=== PATIENT | female | born 1965 | race African-American/Black ===

== ENCOUNTER 2016-11-13 13:49 | Emergency (ER) | payer MEDICARE, MEDICAID ==
[2016-11-13] MEDS ORDERED: ASPIRIN 325 MG TABLET PO ONE (14:13)
--- NOTE | 2016-11-13 14:14 | ER Document Report ---
ED Medical Screen (RME) - General Chief Complaint: Chest Pain Stated Complaint: CHEST PAIN Time Seen by Provider: 11/13/16 14:09 Information source: Patient Notes: 50-year-old female with past medical history of HIV and high blood pressure who presents with 3 days of some intermittent substernal nonradiating chest "pressure". She denies any nausea, vomiting, fevers, coughing, shortness of breath, calf pain, leg swelling. TRAVEL OUTSIDE OF THE [place] IN LAST 30 DAYS: No - Related Data Allergies/Adverse Reactions: acetaminophen [From Percocet] Allergy (Verified 11/13/16 13:58) oxycodone [From Percocet] Allergy (Verified 11/13/16 13:58) Penicillins Allergy (Verified 11/13/16 13:58) sharma Allergy (Uncoded 11/13/16 13:58) Past Medical History Renal/ Medical History: Denies: Hx Peritoneal Dialysis Physical Exam - Vital signs Vitals: Temp Pulse Resp BP Pulse Ox 97.6 F 99 18 118/83 96 11/13/16 13:59 11/13/16 13:59 11/13/16 13:59 11/13/16 13:59 11/13/16 13:59 Course - Vital Signs Vital signs: Temp Pulse Resp BP Pulse Ox 97.6 F 99 18 118/83 96 11/13/16 13:59 11/13/16 13:59 11/13/16 13:59 11/13/16 13:59 11/13/16 13:59
[2016-11-13 15:44] LABS: ABSOLUTE MONOCYTES (AUTO) 0.2 10^3/uL (0.1-1.4); ABSOLUTE NEUT (AUTO) 1.1 10^3/uL (1.7-8.2); BASOPHILS % (AUTO) 1.1 % (0-2); EOSINOPHILS % (AUTO) 1.5 % (0-6); HEMATOCRIT 33.1 % (36.0-47.0); HEMOGLOBIN 10.9 g/dL (12.0-15.5); HGB HCT DIFFERENCE -0.4; LYMPHOCYTES % (AUTO) 41.2 % (13-45); MEAN CORPUSCULAR HEMOGLOBIN 29.5 pg (27.0-33.4); MEAN CORPUSCULAR HGB CONC 32.9 g/dL (32.0-36.0); MEAN CORPUSCULAR VOLUME 90 fl (80-97); MONOCYTES % (AUTO) 8.7 % (3-13); RED CELL DISTRIBUTION WIDTH 14.6 % (11.5-14.0); SEGMENTED NEUTROPHILS % (AUTO) 47.5 % (42-78); WHITE BLOOD COUNT 2.4 10^3/uL (4.0-10.5)
[2016-11-13 15:59] LABS: ALANINE AMINOTRANSFERASE 33 U/L (9-52); ALBUMIN 4.7 g/dL (3.5-5.0); ALKALINE PHOSPHATASE 88 U/L (38-126); ANION GAP 12 (5-19); ASPARTATE AMINO TRANSFERASE 25 U/L (14-36); BILIRUBIN,DIRECT 0.2 mg/dL (0.0-0.4); BILIRUBIN,TOTAL 0.5 mg/dL (0.2-1.3); BLOOD UREA NITROGEN 12 mg/dL (7-20); CALCIUM 9.8 mg/dL (8.4-10.2); CARBON DIOXIDE 24 mmol/L (22-30); CHLORIDE 107 mmol/L (98-107); CREATINE KINASE 217 U/L (30-135); CREATININE RESULT 0.72 mg/dL (0.52-1.25); GLUCOSE 89 mg/dL (75-110); POTASSIUM 4.5 mmol/L (3.6-5.0); SODIUM 143.3 mmol/L (137-145); TOTAL PROTEIN 9.6 g/dL (6.3-8.2)
--- NOTE | 2016-11-13 16:06 | ER Document Report ---
ED Cardiac - General Mode of Arrival: Ambulatory Information source: Patient TRAVEL OUTSIDE OF THE [place] IN LAST 30 DAYS: No <MORELIA CUNNINGHAM - Last Filed: 11/13/16 17:37> <ERNESTO JOY - Last Filed: 11/13/16 23:20> - General Chief Complaint: Chest Pain Stated Complaint: CHEST PAIN Time Seen by Provider: 11/13/16 14:09 Notes: Patient is a 50-year-old female with past medical history significant for HIV that presents to the emergency department today with complaints of chest pain for 3 days. Patient states her pain happens at various times throughout the day and the longest it has lasted was 30 minutes. Patient describes the pain as being in the middle of her chest and as a "tight" feeling. Patient states her HIV medications were recently changed and she has noticed that since the change she has had this pain. Patient denies any nausea, shortness of breath, fevers, cough, or change with food. (MORELIA CUNNINGHAM) - Related Data Allergies/Adverse Reactions: acetaminophen [From Percocet] Allergy (Verified 11/13/16 13:58) oxycodone [From Percocet] Allergy (Verified 11/13/16 13:58) Penicillins Allergy (Verified 11/13/16 13:58) sharma Allergy (Uncoded 11/13/16 13:58) Past Medical History - General Information source: Patient - Social History Smoking Status: Never Smoker Cigarette use (# per day): No Frequency of alcohol use: None Drug Abuse: None Lives with: Family Family History: Reviewed & Not Pertinent Patient has suicidal ideation: No Patient has homicidal ideation: No - Past Medical History Cardiac Medical History: Reports: Hx Hypertension Infectious Medical History: Reports: Hx HIV Surgical Hx: Negative <MORELIA CUNNINGHAM - Last Filed: 11/13/16 17:37> Review of Systems - Review of Systems Constitutional: denies: Fever EENT: No symptoms reported Cardiovascular: See HPI, Chest pain Respiratory: denies: Cough, Short of breath Gastrointestinal: denies: Nausea Genitourinary: No symptoms reported Female Genitourinary: No symptoms reported Musculoskeletal: No symptoms reported Skin: No symptoms reported Hematologic/Lymphatic: No symptoms reported Neurological/Psychological: No symptoms reported -: Yes All other systems reviewed and negative <MORELIA CUNNINGHAM - Last Filed: 11/13/16 17:37> Physical Exam <MORELIA CUNNINGHAM - Last Filed: 11/13/16 17:37> <ERNESTO JOY - Last Filed: 11/13/16 23:20> - Vital signs Vitals: Temp Pulse Resp BP Pulse Ox 97.6 F 99 18 118/83 96 11/13/16 13:59 11/13/16 13:59 11/13/16 13:59 11/13/16 13:59 11/13/16 13:59 - Notes Notes: Physical Exam: General: Alert, appears well. HEENT: Normocephalic. Atraumatic. PERRL. Extraocular movements intact. Oropharynx clear. Neck: Supple. Non-tender. Respiratory: No respiratory distress. Clear and equal breath sounds bilaterally. Cardiovascular: Regular rate and rhythm. Abdominal: Normal Inspection. Non-tender. No distension. Normal Bowel Sounds. Back: Non-tender. No deformity or step off. Extremities: Moves all four extremities. Upper extremities: Normal inspection. Normal ROM. Lower extremities: Normal inspection. No edema. Normal ROM. Neurological: Normal cognition. AAOx4. Normal speech. Psychological: Normal affect. Normal Mood. Skin: Warm. Dry. Normal color. (MORELIA CUNNINGHAM) Course - Laboratory Result Diagrams: 11/13/16 15:25 11/13/16 15:25 <MORELIA CUNNINGHAM - Last Filed: 11/13/16 17:37> - Laboratory Result Diagrams: 11/13/16 15:25 11/13/16 15:25 <ERNESTO JOY - Last Filed: 11/13/16 23:20> - Re-evaluation Re-evalutation: 11/13/16 18:16 Patient is a 50-year-old female who comes in for chest pain. Patient started complaining of chest pain again after eating a double cheeseburger here in the emergency department. Patient was given a GI cocktail and symptoms resolved. No acute changes on EKG. Troponin negative 2. Patient will be discharged home with medication for reflux and is to follow-up with her doctor. (ERNESTO JOY) - Vital Signs Vital signs: Temp Pulse Resp BP Pulse Ox 97.5 F 89 17 122/97 H 96 11/13/16 20:18 11/13/16 20:18 11/13/16 20:18 11/13/16 20:18 11/13/16 20:18 - Laboratory Laboratory results interpreted by me: 11/13/16 11/13/16 15:25 15:25 WBC 2.4 L RBC 3.70 L Hgb 10.9 L Hct 33.1 L RDW 14.6 H Absolute Neutrophils 1.1 L Creatine Kinase 217 H Total Protein 9.6 H Discharge <MORELIA CUNNINGHAM - Last Filed: 11/13/16 17:37> <ERNESTO JOY - Last Filed: 11/13/16 23:20> - Discharge Clinical Impression: GERD (gastroesophageal reflux disease) Qualifiers: Esophagitis presence: with esophagitis Qualified Code(s): K21.0 - Gastro- esophageal reflux disease with esophagitis Condition: Stable Disposition: HOME, SELF-CARE Instructions: Reflux Disease (GERD) ([facility]) Prescriptions: Ondansetron [Zofran Odt 4 mg Tablet] 1 tab PO Q6HP PRN #15 tab.rapdis PRN Reason: For Nausea/Vomiting Famotidine [Pepcid 20 mg Tablet] 20 mg PO DAILY #30 tablet Sucralfate [Carafate 1 gm Tablet] 1 gm PO ACHS #60 tablet Referrals: TALON REEDER FNP [Primary Care Provider] - Follow up as needed Scribe Attestation: 11/13/16 23:20 I personally performed the services described in the documentation, reviewed and edited the documentation which was dictated to the scribe in my presence, and it accurately records my words and actions. (ERNESTO JOY) Scribe Documentation - Scribe Written by Scribe:: Sunshine Du, 11/13/2016 1742 acting as scribe for :: Ela <MORELIA CUNNINGHAM - Last Filed: 11/13/16 17:37>
[2016-11-13 16:11] LABS: CREATINE KINASE MB 1.19 ng/mL (<4.55)
[2016-11-13 16:17] LABS: TROPONIN I < 0.012 ng/mL
[2016-11-13] MEDS ORDERED: SUCRALFATE 1 GM TABLET PO ONE (17:49)
[2016-11-13] MEDS ORDERED: ONDANSETRON 4 MG TAB.RAPDIS PO ONE (17:53)
[2016-11-13] MEDS ORDERED: MAG HYDROX/AL HYDROX/SIMETH SUSP 30 ML UDCUP PO ONE (17:53)
--- NOTE | 2016-11-13 18:10 | RADIOLOGY REPORT (SQ) ---
EXAM DESCRIPTION: CHEST PA/LAT COMPLETED DATE/TIME: 11/13/2016 5:23 pm REASON FOR STUDY: CP COMPARISON: None. EXAM PARAMETERS: NUMBER OF VIEWS: two views TECHNIQUE: Digital Frontal and Lateral radiographic views of the chest acquired. RADIATION DOSE: NA LIMITATIONS: none FINDINGS: LUNGS AND PLEURA: No opacities, masses or pneumothorax. No pleural effusion. MEDIASTINUM AND HILAR STRUCTURES: No masses or contour abnormalities. HEART AND VASCULAR STRUCTURES: Heart normal size. No evidence for failure. BONES: No acute findings. HARDWARE: None in the chest. OTHER: No other significant finding. IMPRESSION: NO SIGNIFICANT RADIOGRAPHIC FINDING IN THE CHEST. TECHNICAL DOCUMENTATION: JOB ID: [id number] [employer]- All Rights Reserved
--- NOTE | 2016-11-13 19:53 | EKG REPORT ---
SEVERITY:- NORMAL ECG - SINUS RHYTHM : Confirmed by: Steff Maldonado 13-Nov-2016 19:52:52
--- NOTE | 2016-11-13 19:53 | EKG REPORT ---
SEVERITY:- ABNORMAL ECG - SINUS RHYTHM LEFT ATRIAL ABNORMALITY : Confirmed by: Steff Maldonado 13-Nov-2016 19:52:55
[2016-11-13 20:24] VITALS: BP 122/97
== END 2016-11-13 20:18 | disposition home or self-care (01) ==
LOC: ER 13:49
DX: K21.0 Gastro-esophageal reflux disease with esophagitis (principal); R07.89 Other chest pain; I10 Essential (primary) hypertension; Z21 Asymptomatic human immunodeficiency virus [HIV] infection status; Z79.899 Other long term (current) drug therapy; Z88.5 Allergy status to narcotic agent; Z88.0 Allergy status to penicillin; Z91.018 Allergy to other foods
CPT/HCPCS: 93005; 99285; 36415; 82553; 82550; 85025; 80053; 84484; 71020; 93010; A9270 ×2; S0119

== ENCOUNTER 2017-02-13 21:20 | Emergency (ER) | payer MEDICARE, MEDICAID ==
[2017-02-13] MEDS ORDERED: ASPIRIN 81 MG TABLET, CHEWABLE PO ONE (21:22)
--- NOTE | 2017-02-13 22:30 | RADIOLOGY REPORT (SQ) ---
EXAM DESCRIPTION: CHEST SINGLE VIEW COMPLETED DATE/TIME: 02/13/2017 10:07 pm REASON FOR STUDY: cp COMPARISON: 11/13/2016 EXAM PARAMETERS: NUMBER OF VIEWS: One view. TECHNIQUE: Single frontal radiographic view of the chest acquired. RADIATION DOSE: NA LIMITATIONS: None. FINDINGS: LUNGS AND PLEURA: No consolidation, masses or pneumothorax. Small right pleural effusion. MEDIASTINUM AND HILAR STRUCTURES: Stable. HEART AND VASCULAR STRUCTURES: Stable. BONES: No acute findings. HARDWARE: None in the chest. OTHER: No other significant finding. IMPRESSION: Small right pleural effusion. TECHNICAL DOCUMENTATION: JOB ID: [id number]
[2017-02-13 22:36] LABS: ABSOLUTE LYMPHOCYTES (AUTO) 1.1 10^3/uL (0.5-4.7); ABSOLUTE MONOCYTES (AUTO) 0.2 10^3/uL (0.1-1.4); ABSOLUTE NEUT (AUTO) 2.3 10^3/uL (1.7-8.2); BASOPHILS % (AUTO) 0.5 % (0-2); EOSINOPHILS % (AUTO) 1.2 % (0-6); HEMATOCRIT 30.5 % (36.0-47.0); HEMOGLOBIN 10.5 g/dL (12.0-15.5); LYMPHOCYTES % (AUTO) 29.6 % (13-45); MEAN CORPUSCULAR HGB CONC 34.3 g/dL (32.0-36.0); MEAN CORPUSCULAR VOLUME 90 fl (80-97); MONOCYTES % (AUTO) 6.3 % (3-13); RED BLOOD COUNT 3.39 10^6/uL (3.72-5.28); SEGMENTED NEUTROPHILS % (AUTO) 62.4 % (42-78); WHITE BLOOD COUNT 3.6 10^3/uL (4.0-10.5)
[2017-02-13 22:59] LABS: ALANINE AMINOTRANSFERASE 25 U/L (9-52); ALBUMIN 4.5 g/dL (3.5-5.0); ALKALINE PHOSPHATASE 79 U/L (38-126); ANION GAP 13 (5-19); ASPARTATE AMINO TRANSFERASE 23 U/L (14-36); BILIRUBIN,DIRECT 0.3 mg/dL (0.0-0.4); BILIRUBIN,TOTAL 0.4 mg/dL (0.2-1.3); BLOOD UREA NITROGEN 12 mg/dL (7-20); CALCIUM 9.6 mg/dL (8.4-10.2); CARBON DIOXIDE 24 mmol/L (22-30); CHLORIDE 102 mmol/L (98-107); CREATINE KINASE 115 U/L (30-135); CREATININE RESULT 0.77 mg/dL (0.52-1.25); GLUCOSE 93 mg/dL (75-110); POTASSIUM 4.4 mmol/L (3.6-5.0); SODIUM 139.3 mmol/L (137-145); TOTAL PROTEIN 8.9 g/dL (6.3-8.2)
[2017-02-13 23:12] LABS: CREATINE KINASE MB 0.67 ng/mL (<4.55)
[2017-02-13 23:13] LABS: TROPONIN I < 0.012 ng/mL
[2017-02-14] LABS: APPEARANCE,URINE CLEAR; BILIRUBIN,URINE NEGATIVE (NEGATIVE); GLUCOSE, URINE NEGATIVE (NEGATIVE); KETONES,URINE NEGATIVE (NEGATIVE); LEUKOCYTE ESTERASE,URINE NEGATIVE (NEGATIVE); NITRITE,URINE NEGATIVE (NEGATIVE); PROTEIN,URINE NEGATIVE (NEGATIVE); URINE SPECIFIC GRAVITY 1.005; UROBILINOGEN,URINE NEGATIVE mg/dL (<2.0)
[2017-02-14] MEDS ORDERED: LIDOCAINE 2% VISCOUS SOLN 20 ML UDCUP PO ONE (00:15)
[2017-02-14] MEDS ORDERED: MAG HYDROX/AL HYDROX/SIMETH SUSP 30 ML UDCUP PO ONE (00:16)
[2017-02-14] MEDS ORDERED: PANTOPRAZOLE SODIUM 40 MG VIAL IV ONE (00:16)
--- NOTE | 2017-02-14 00:24 | ER Document Report ---
ED General - General Chief Complaint: Chest Pain Stated Complaint: CHEST PAIN Time Seen by Provider: 02/13/17 23:49 Mode of Arrival: Ambulatory Information source: Patient TRAVEL OUTSIDE OF THE [place] IN LAST 30 DAYS: No - HPI Notes: Patient is a 51-year-old female HIV positive presents emergency department with report of recurrent reflux pain and heartburn and chest pain that occurs after she eats. The patient denies any recent changes in her medications, stating she is on Pepcid, Carafate, antihypertensive medications and medications for her HIV. The patient denies any exertional component to her chest pain. She does report the chest pain does radiate somewhat through to the mid back region. no fever or cough. No dyspnea or nausea. The patient also reports that she may be currently 8 weeks. She is a . - Related Data Allergies/Adverse Reactions: acetaminophen [From Percocet] Allergy (Verified 11/13/16 13:58) oxycodone [From Percocet] Allergy (Verified 11/13/16 13:58) Penicillins Allergy (Verified 11/13/16 13:58) sharma Allergy (Uncoded 11/13/16 13:58) Past Medical History - General Information source: Patient - Social History Smoking Status: Never Smoker Frequency of alcohol use: None Drug Abuse: None Lives with: Family Family History: Reviewed & Not Pertinent Patient has suicidal ideation: No Patient has homicidal ideation: No - Past Medical History Cardiac Medical History: Reports: Hx Hypertension Renal/ Medical History: Denies: Hx Peritoneal Dialysis Infectious Medical History: Reports: Hx HIV Review of Systems - Review of Systems Notes: REVIEW OF SYSTEMS: CONSTITUTIONAL : Denies fever, chills, or sweats. Denies recent illness. EENT: Denies eye, ear, throat, or mouth pain or symptoms. Denies nasal or sinus congestion or discharge. Denies throat, tongue, or mouth swelling or difficulty swallowing. CARDIOVASCULAR: Denies palpitations or racing or irregular heart beat. Denies ankle edema. RESPIRATORY: Denies cough, cold, or chest congestion. Denies shortness of breath, difficulty breathing, or wheezing. GASTROINTESTINAL: Denies abdominal distention. Denies nausea, vomiting, or diarrhea. Denies blood in vomitus, stools, or per rectum. Denies black, tarry stools. Denies constipation. GENITOURINARY: Denies difficulty urinating, painful urination, burning, frequency, blood in urine, or discharge. FEMALE GENITOURINARY: Denies vaginal bleeding, heavy or abnormal periods, irregular periods. Denies vaginal discharge or odor. Patient claims her last menstrual period was 1 month ago. MUSCULOSKELETAL: Denies back or neck pain or stiffness. Denies joint pain or swelling. SKIN: Denies rash, lesions or sores. HEMATOLOGIC : Denies easy bruising or bleeding. LYMPHATIC: Denies swollen, enlarged glands. NEUROLOGICAL: Denies confusion or altered mental status. Denies passing out or loss of consciousness. Denies dizziness or lightheadedness. Denies headache. Denies weakness or paralysis or loss of use of either side. Denies problems with gait or speech. Denies sensory loss, numbness, or tingling. Denies seizures. PSYCHIATRIC: Denies anxiety or stress. Denies depression, suicidal ideation, or homicidal ideation. ALL OTHER SYSTEMS REVIEWED AND NEGATIVE. Dictation was performed using [employer] voice recognition software Physical Exam - Vital signs Vitals: Temp Pulse Resp BP Pulse Ox 97.6 F 80 16 113/80 97 02/13/17 21:42 02/13/17 21:42 02/13/17 21:42 02/13/17 21:42 02/13/17 21:42 - Notes Notes: PHYSICAL EXAMINATION: GENERAL: Well-appearing, well-nourished and in no acute distress. HEAD: Atraumatic, normocephalic. EYES: Pupils equal round and reactive to light, extraocular movements intact, conjunctiva are normal. ENT: Nares patent, oropharynx clear without exudates. Moist mucous membranes. NECK: Normal range of motion, supple without lymphadenopathy LUNGS: Breath sounds clear to auscultation bilaterally and equal. No wheezes rales or rhonchi. HEART: Regular rate and rhythm without murmurs ABDOMEN: Soft, nondistended abdomen. No guarding, no rebound. No masses appreciated. Mild midepigastric pain going to the lower chest region. Negative Berkowitz's. Female : deferred Musculoskeletal: Normal range of motion, no pitting or edema. No cyanosis. NEUROLOGICAL: Cranial nerves grossly intact. Normal speech, normal gait. Normal sensory, motor exams PSYCH: Normal mood, normal affect. SKIN: Warm, Dry, normal turgor, no rashes or lesions noted. Course - Re-evaluation Re-evalutation: 02/14/17 00:22 Patient was given Maalox, lidocaine, Protonix with complete relief of her pain. Patient was ambulatory without complaint and felt stable for discharge. No evidence for congestive heart failure pneumonia or electrolyte imbalance or anemia or GI bleed or pancreatitis. Findings fit with a gastritis versus reflux. No obvious evidence for cardiac etiology.. 02/14/17 02:39 - Vital Signs Vital signs: Temp Pulse Resp BP Pulse Ox 97.6 F 80 16 113/80 100 02/13/17 21:42 02/13/17 21:42 02/13/17 21:42 02/13/17 21:42 02/13/17 23:44 - Laboratory Result Diagrams: 02/13/17 22:20 02/13/17 22:20 Laboratory results interpreted by me: 02/13/17 02/13/17 22:20 22:20 WBC 3.6 L RBC 3.39 L Hgb 10.5 L Hct 30.5 L Total Protein 8.9 H - EKG Interpretation by Ct EKG shows normal: Sinus rhythm Additional EKG results interpreted by me: 02/14/17 00:22 EKG as interpreted by pr showed normal sinus rhythm heart rate of 78. There is no gross evidence for acute TN or ischemia identified. There is no change from previous EKG reviewed from 11/13/16. Discharge - Discharge Clinical Impression: Chest pain Qualifiers: Chest pain type: unspecified Qualified Code(s): R07.9 - Chest pain, unspecified GERD (gastroesophageal reflux disease) Qualifiers: Esophagitis presence: with esophagitis Qualified Code(s): K21.0 - Gastro- esophageal reflux disease with esophagitis Condition: Stable Disposition: HOME, SELF-CARE Instructions: Chest Pain of Unclear Cause ([facility]), Prilosec (Acid Pump Inhibitor ) ([facility]), Reflux Disease (GERD) ([facility]) Additional Instructions: [place] diet. Nothing spicy. You need an upper endoscopy to evaluate your stomach. Return to the ED in case of worsening pain or any difficulty breathing or fever. Prescriptions: Omeprazole 40 mg PO DAILY #60 capsule.
[2017-02-14 03:09] VITALS: BP 122/76
--- NOTE | 2017-02-14 20:26 | EKG REPORT ---
SEVERITY:- BORDERLINE ECG - SINUS RHYTHM PROBABLE LEFT ATRIAL ABNORMALITY : Confirmed by: Coretta Hughes MD 14-Feb-2017 20:24:57
== END 2017-02-14 03:07 | disposition home or self-care (01) ==
LOC: ER 21:20
DX: K21.0 Gastro-esophageal reflux disease with esophagitis (principal); R07.9 Chest pain, unspecified; R10.13 Epigastric pain; I10 Essential (primary) hypertension; Z21 Asymptomatic human immunodeficiency virus [HIV] infection status; Z79.899 Other long term (current) drug therapy; Z88.5 Allergy status to narcotic agent; Z88.0 Allergy status to penicillin; Z91.018 Allergy to other foods
CPT/HCPCS: 93005; 99285; 96374; 36415; 82553; 82550; 84702; 83690; 85025; 80053; 81001; 84484; 71010; 93010; A9270; J3490; C9113; S0164

== ENCOUNTER 2018-04-27 13:10 | Emergency (ER) | payer MEDICARE, MEDICAID ==
--- NOTE | 2018-04-27 13:53 | ER Document Report ---
ED General - General Chief Complaint: Cold Symptoms Stated Complaint: FEVER,RIB PAIN,COUGH,CONGESTION Time Seen by Provider: 04/27/18 13:44 Mode of Arrival: Ambulatory Information source: Patient Notes: 52-year-old female with a history of HIV presents the emergency department with complaints of fever, chills, productive cough, congestion for the last week. Over the last day she began developing some laryngitis. Patient initially thought that she just had a cold. She has been exposed to others with similar symptoms. She has been using DayQuil and NyQuil for symptom relief without suc cess. Patient is not a smoker. She states that she is only on her HIV medications. 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 She does not know her CD4 count. Patient denies any chest pain, difficulty breathing, abdominal pain. TRAVEL OUTSIDE OF THE [place] IN LAST 30 DAYS: No - HPI Onset: Last week Onset/Duration: Gradual, Constant Quality of pain: No pain Associated symptoms: Chills, Productive cough, Fever, Rhinnorhea Exacerbated by: Denies Relieved by: Denies Similar symptoms previously: No Recently seen / treated by doctor: No - Related Data Allergies/Adverse Reactions: acetaminophen [From Percocet] Allergy (Verified 03/01/17 11:14) oxycodone [From Percocet] Allergy (Verified 03/01/17 11:14) Penicillins Allergy (Verified 03/01/17 11:14) control Allergy (Uncoded 04/27/18 13:11) sharma Allergy (Uncoded 03/01/17 11:14) Past Medical History - General Information source: Patient - Social History Smoking Status: Never Smoker Family History: Reviewed & Not Pertinent - Past Medical History Cardiac Medical History: Reports: Hx Hypertension Renal/ Medical History: Denies: Hx Peritoneal Dialysis Infectious Medical History: Reports: Hx HIV Review of Systems - Review of Systems Constitutional: Chills, Fever EENT: Nose congestion, Nose discharge Cardiovascular: No symptoms reported Respiratory: Cough Gastrointestinal: No symptoms reported Genitourinary: No symptoms reported Female Genitourinary: No symptoms reported Musculoskeletal: No symptoms reported Skin: No symptoms reported Hematologic/Lymphatic: No symptoms reported Neurological/Psychological: No symptoms reported -: Yes All other systems reviewed and negative Physical Exam - Vital signs Vitals: Temp Pulse Resp BP Pulse Ox 98.3 F 96 18 115/89 H 97 04/27/18 13:18 04/27/18 13:18 04/27/18 13:18 04/27/18 13:18 04/27/18 13:18 - Notes Notes: PHYSICAL EXAMINATION: GENERAL: Well-appearing, well-nourished and in no acute distress. HEAD: Atraumatic, normocephalic. EYES: Pupils equal round and reactive to light, extraocular movements intact, conjunctiva are normal. ENT: Nares patent, oropharynx clear without exudates. Moist mucous membranes. NECK: Normal range of motion, supple without lymphadenopathy LUNGS: Breath sounds clear to auscultation bilaterally and equal. No wheezes rales or rhonchi. HEART: Regular rate and rhythm without murmurs ABDOMEN: Soft, nontender, nondistended abdomen. No guarding, no rebound. No masses appreciated. Female : deferred Musculoskeletal: Normal range of motion, no pitting or edema. No cyanosis. NEUROLOGICAL: Cranial nerves grossly intact. Normal speech, normal gait. Normal sensory, motor exams PSYCH: Normal mood, normal affect. SKIN: Warm, Dry, normal turgor, no rashes or lesions noted. Course - Re-evaluation Re-evalutation: 04/27/18 14:57 Vitals stable. Lungs are clear to auscultation. X-ray does not show an acute process. As patient is having a productive cough, worsening symptoms, and has a history of HIV, I will start the patient on an antibiotic. Patient instructed to take the medication prescribed as directed, to follow-up with her primary care physician this week, and to return to the emergency department for any worsening symptoms. Patient is agreeable to plan of care. 04/27/18 15:07 - Vital Signs Vital signs: Temp Pulse Resp BP Pulse Ox 98.3 F 96 18 115/89 H 97 04/27/18 13:18 04/27/18 13:18 04/27/18 13:18 04/27/18 13:18 04/27/18 13:18 Discharge - Discharge Clinical Impression: Productive cough Condition: Good Disposition: HOME, SELF-CARE Instructions: Cough Suppressant & Expectorant Medications Prescriptions: Benzonatate [Tessalon [place] 100 mg Capsule] 100 mg PO Q8HP PRN #14 cap PRN Reason: Levofloxacin [Levaquin 750 mg Tablet] 750 mg PO DAILY #5 tablet Referrals: TRE MOREL MD [ACTIVE STAFF] - Follow up as needed
--- NOTE | 2018-04-27 14:32 | RADIOLOGY REPORT (SQ) ---
EXAM DESCRIPTION: CHEST 2 VIEWS COMPLETED DATE/TIME: 04/27/2018 2:20 pm REASON FOR STUDY: cough COMPARISON: 2017. NUMBER OF VIEWS: Two view. TECHNIQUE: Frontal and lateral radiographic views of the chest acquired. LIMITATIONS: None. FINDINGS: LUNGS AND PLEURA: No opacities, masses or pneumothorax. No pleural effusion. Attenuated bl ood vessels and flattened sol-diaphragms. MEDIASTINUM AND HILAR STRUCTURES: No masses. No contour abnormalities. HEART AND VASCULAR STRUCTURES: Cardiomegaly without failure. BONES: No acute findings. HARDWARE: None in the chest. OTHER: No other significant finding. IMPRESSION: COPD. NO ACUTE RADIOGRAPHIC FINDING IN THE CHEST. TECHNICAL DOCUMENTATION: JOB ID: [id number] [employer]- All Rights Reserved Reading location - IP/workstation name: [email or web address]
[2018-04-27 15:20] VITALS: BP 129/89
== END 2018-04-27 15:20 | disposition home or self-care (01) ==
LOC: ER 13:10
DX: R05 Cough (principal); R50.9 Fever, unspecified; R07.81 Pleurodynia; B20 Human immunodeficiency virus [HIV] disease; I10 Essential (primary) hypertension; Z88.6 Allergy status to analgesic agent; Z88.0 Allergy status to penicillin
CPT/HCPCS: 71046; 99283

== ENCOUNTER 2018-07-31 12:01 | Emergency (ER) | payer MEDICARE, MEDICAID ==
--- NOTE | 2018-07-31 12:41 | ER Document Report ---
ED Medical Screen (RME) - General Chief Complaint: Abdominal Pain Stated Complaint: BACK PAIN Time Seen by Provider: 07/31/18 12:34 Mode of Arrival: Ambulatory Information source: Patient Notes: Patient is a 52-year-old female who presents to the emergency department with complaints of left flank pain that radiates around to the middle of her abdomen. Patient reports pain has been going on for at least 1 week, worsening today. Patient denies any nausea, vomiting, diarrhea or fevers. Denies any history of similar pain. Denies any history of kidney stones. Denies any alcohol use. Exam: Abdomen soft, nontender with no guarding no rebound. Point tenderness to left flank and left lateral lower ribs. I have greeted and performed a rapid initial assessment of this patient. A comprehensive ED assessment and evaluation of the patient, analysis of test results and completion of the medical decision making process will be conducted by additional ED providers. Dictation of this chart was performed using voice recognition software; therefore, there may be some unintended grammatical errors. TRAVEL OUTSIDE OF THE [place] IN LAST 30 DAYS: No - Related Data Allergies/Adverse Reactions: acetaminophen [From Percocet] Allergy (Verified 07/31/18 12:03) oxycodone [From Percocet] Allergy (Verified 07/31/18 12:03) Penicillins Allergy (Verified 07/31/18 12:03) control Allergy (Uncoded 07/31/18 12:03) sharma Allergy (Uncoded 07/31/18 12:03) Past Medical History - Social History Chew tobacco use (# tins/day): No Frequency of alcohol use: None Drug Abuse: None - Past Medical History Cardiac Medical History: Reports: Hx Hypertension Renal/ Medical History: Denies: Hx Peritoneal Dialysis Infectious Medical History: Reports: Hx HIV Physical Exam - Vital signs Vitals: Temp Pulse Resp BP Pulse Ox 98.6 F 97 16 124/85 95 07/31/18 12:20 07/31/18 12:20 07/31/18 12:20 07/31/18 12:20 07/31/18 12:20 Course - Vital Signs Vital signs: Temp Pulse Resp BP Pulse Ox 98.6 F 97 16 124/85 95 07/31/18 12:20 07/31/18 12:20 07/31/18 12:20 07/31/18 12:20 07/31/18 12:20
[2018-07-31 13:38] LABS: APPEARANCE,URINE CLEAR; BILIRUBIN,URINE NEGATIVE (NEGATIVE); COLOR,URINE YELLOW; GLUCOSE, URINE NEGATIVE (NEGATIVE); KETONES,URINE NEGATIVE (NEGATIVE); LEUKOCYTE ESTERASE,URINE NEGATIVE (NEGATIVE); NITRITE,URINE NEGATIVE (NEGATIVE); PROTEIN,URINE NEGATIVE (NEGATIVE); UROBILINOGEN,URINE NEGATIVE mg/dL (<2.0)
[2018-07-31 13:43] LABS: ABSOLUTE LYMPHOCYTES (AUTO) 0.7 10^3/uL (0.5-4.7); ABSOLUTE MONOCYTES (AUTO) 0.1 10^3/uL (0.1-1.4); ABSOLUTE NEUT (AUTO) 1.6 10^3/uL (1.7-8.2); BASOPHILS % (AUTO) 1.1 % (0-2); EOSINOPHILS % (AUTO) 1.2 % (0-6); HEMATOCRIT 34.2 % (36.0-47.0); HEMOGLOBIN 11.5 g/dL (12.0-15.5); MEAN CORPUSCULAR HEMOGLOBIN 29.8 pg (27.0-33.4); MEAN CORPUSCULAR HGB CONC 33.6 g/dL (32.0-36.0); MEAN CORPUSCULAR VOLUME 89 fl (80-97); MONOCYTES % (AUTO) 5.4 % (3-13); PLATELET COUNT 278 10^3/uL (150-450); RED BLOOD COUNT 3.86 10^6/uL (3.72-5.28); RED CELL DISTRIBUTION WIDTH 14.2 % (11.5-14.0); SEGMENTED NEUTROPHILS % (AUTO) 63.3 % (42-78); TOTAL CELLS COUNTED % (AUTO) 100 %; WHITE BLOOD COUNT 2.6 10^3/uL (4.0-10.5)
[2018-07-31 14:01] LABS: ALANINE AMINOTRANSFERASE 7 U/L (9-52); ALBUMIN 4.8 g/dL (3.5-5.0); ALKALINE PHOSPHATASE 76 U/L (38-126); ANION GAP 7 (5-19); ASPARTATE AMINO TRANSFERASE 37 U/L (14-36); BILIRUBIN,DIRECT 0.4 mg/dL (0.0-0.4); BILIRUBIN,TOTAL 0.6 mg/dL (0.2-1.3); BLOOD UREA NITROGEN 10 mg/dL (7-20); CALCIUM 10.2 mg/dL (8.4-10.2); CARBON DIOXIDE 28 mmol/L (22-30); CHLORIDE 105 mmol/L (98-107); GLUCOSE 113 mg/dL (75-110); LIPASE 116.9 U/L (23-300); POTASSIUM 4.3 mmol/L (3.6-5.0); SODIUM 140.1 mmol/L (137-145); TOTAL PROTEIN 10.3 g/dL (6.3-8.2)
--- NOTE | 2018-07-31 16:18 | RADIOLOGY REPORT (SQ) ---
EXAM DESCRIPTION: CT ABD/PELVIS NO ORAL OR IV COMPLETED DATE/TIME: 07/31/2018 3:59 pm REASON FOR STUDY: left flank pain and abd pain COMPARISON: None. TECHNIQUE: CT scan of the abdomen and pelvis performed without intravenous or oral contrast. Images reviewed with lung, soft tissue, and bone windows. Reconstructed coronal and sagittal MPR images revi ewed. All images stored on PACS. All CT scanners at this facility use dose modulation, iterative reconstruction, and/or weight based d osing when appropriate to reduce radiation dose to as low as reasonably achievable (ALARA). [facility]: Dose Right [facility]: CareDose [facility]: Dose Right [facility]: Teradose 4D [facility]: Smart InStitchu RADIATION DOSE: CT Rad equipment meets quality standard of care and radiation dose reduction techniq ues were employed. CTDIvol: 6.6 mGy. DLP: 315 mGy-cm.mGy. LIMITATIONS: None. FINDINGS: LOWER CHEST: Centrilobular emphysema. Faint less than 4 mm pulmonary nodules. Partially calcified nodule anterior right cardiophrenic sulcus. NON-CONTRASTED LIVER, SPLEEN, ADRENALS: Evaluation limited by lack of IV contrast. No identified sign ificant masses. PANCREAS: No masses. No peripancreatic inflammatory changes. GALLBLADDER: No identified stones by CT criteria. No inflammatory changes to suggest cholecystitis. RIGHT KIDNEY AND URETER: No suspicious masses. Assessment limited by lack of IV contrast. No signif icant calcifications. No hydronephrosis or hydroureter. LEFT KIDNEY AND URETER: No suspicious masses. Assessment limited by lack of IV contrast. No signifi cant calcifications. No hydronephrosis or hydroureter. AORTA AND RETROPERITONEUM: No aneurysm. No retroperitoneal masses or adenopathy. BOWEL AND PERITONEAL CAVITY: No obvious masses or inflammatory changes. No free fluid. APPENDIX: Normal. PELVIS, BLADDER, AND ABDOMINAL WALL:No abnormal masses. No free fluid. Bladder normal. BONES: No significant findings. OTHER: No other significant finding. IMPRESSION: 1. No acute findings in the abdomen or pelvis. 2. Incidental pulmonary nodules. COMMENT: Quality ID # [id number]: Final reports with documentation of one or more dose reduction techniques (e.g., Automated exposure control, adjustment of the mA and/or kV according to patient size, use of iterative reconstruction technique) TECHNICAL DOCUMENTATION: JOB ID: [id number] [employer]- All Rights Reserved Reading location - IP/workstation name: [email or web address]
[2018-07-31 17:33] VITALS: BP 129/69
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
== END 2018-07-31 16:18 | disposition left against medical advice (07) ==
LOC: ER 12:01
DX: R10.32 Left lower quadrant pain (principal); I10 Essential (primary) hypertension; B20 Human immunodeficiency virus [HIV] disease; Z88.6 Allergy status to analgesic agent; Z88.0 Allergy status to penicillin
CPT/HCPCS: 36415; 74176; 80053; 81001; 83690; 85025; 99284

== ENCOUNTER 2018-09-28 20:15 | Emergency (ER) | payer MEDICARE, MEDICAID ==
--- NOTE | 2018-09-28 20:52 | ER Document Report ---
ED Medical Screen (RME) - General Chief Complaint: Abdominal Pain Stated Complaint: ABDOMINAL PAIN Time Seen by Provider: 09/28/18 20:50 Mode of Arrival: Ambulatory Information source: Patient Notes: Patient presents complaining of right sided abdominal pain that started today. Patient states she has had urinary frequency and diarrhea. Patient denies any nausea or vomiting. Patient denies any fever. hx: HIV, hypertension, anemia I have greeted and performed a rapid initial assessment of this patient. A comprehensive ED assessment and evaluation of the patient, analysis of test resu lts and completion of the medical decision making process will be conducted by additional ED providers. TRAVEL OUTSIDE OF THE [place] IN LAST 30 DAYS: No - Related Data Allergies/Adverse Reactions: acetaminophen [From Percocet] Allergy (Verified 07/31/18 17:25) oxycodone [From Percocet] Allergy (Verified 07/31/18 17:25) Penicillins Allergy (Verified 07/31/18 17:25) control Allergy (Uncoded 07/31/18 17:25) sharma Allergy (Uncoded 07/31/18 17:25) Past Medical History - Past Medical History Cardiac Medical History: Reports: Hx Hypertension Renal/ Medical History: Denies: Hx Peritoneal Dialysis Infectious Medical History: Reports: Hx HIV Physical Exam - Vital signs Vitals: Temp Pulse Resp BP Pulse Ox 98.4 F 86 16 131/85 H 93 09/28/18 20:25 09/28/18 20:25 09/28/18 20:25 09/28/18 20:25 09/28/18 20:25 - Abdominal Distension: Distended Tenderness: Tender - r side abd pain. No: McBurney's point, Berkowitz's sign, Guarding Course - Vital Signs Vital signs: Temp Pulse Resp BP Pulse Ox 98.4 F 86 16 131/85 H 93 09/28/18 20:25 09/28/18 20:25 09/28/18 20:25 09/28/18 20:25 09/28/18 20:25
[2018-09-29 01:27] LABS: APPEARANCE,URINE SLIGHTLY-CLOUDY; BILIRUBIN,URINE NEGATIVE (NEGATIVE); COLOR,URINE YELLOW; GLUCOSE, URINE NEGATIVE (NEGATIVE); KETONES,URINE NEGATIVE (NEGATIVE); LEUKOCYTE ESTERASE,URINE NEGATIVE (NEGATIVE); NITRITE,URINE NEGATIVE (NEGATIVE); PROTEIN,URINE NEGATIVE (NEGATIVE); URINE SPECIFIC GRAVITY 1.024; UROBILINOGEN,URINE NEGATIVE mg/dL (<2.0)
[2018-09-29 01:30] LABS: ABSOLUTE EOSINOPHILS # (AUTO) 0.1 10^3/uL (0.0-0.6); ABSOLUTE LYMPHOCYTES (AUTO) 0.8 10^3/uL (0.5-4.7); ABSOLUTE MONOCYTES (AUTO) 0.2 10^3/uL (0.1-1.4); ABSOLUTE NEUT (AUTO) 1.2 10^3/uL (1.7-8.2); BASOPHILS % (AUTO) 0.8 % (0-2); EOSINOPHILS % (AUTO) 3.2 % (0-6); HEMATOCRIT 32.1 % (36.0-47.0); HEMOGLOBIN 10.6 g/dL (12.0-15.5); LYMPHOCYTES % (AUTO) 35.1 % (13-45); MEAN CORPUSCULAR HEMOGLOBIN 29.4 pg (27.0-33.4); MEAN CORPUSCULAR HGB CONC 33.1 g/dL (32.0-36.0); MEAN CORPUSCULAR VOLUME 89 fl (80-97); MONOCYTES % (AUTO) 7.2 % (3-13); PLATELET COUNT 214 10^3/uL (150-450); RED BLOOD COUNT 3.62 10^6/uL (3.72-5.28); RED CELL DISTRIBUTION WIDTH 14.1 % (11.5-14.0); SEGMENTED NEUTROPHILS % (AUTO) 53.7 % (42-78); TOTAL CELLS COUNTED % (AUTO) 100 %; WHITE BLOOD COUNT 2.3 10^3/uL (4.0-10.5)
[2018-09-29] MEDS ORDERED: KETOROLAC TROMETHAMINE INJ/PF 30 MG/1 ML SDV IV ONE (01:38)
[2018-09-29] MEDS ORDERED: ONDANSETRON HCL INJ/PF 4 MG/2 ML SDV IV ONE (01:38)
[2018-09-29] MEDS ORDERED: NORMAL SALINE 1000 ML 1,000 ML IV ONE (01:39)
[2018-09-29 01:50] LABS: ALANINE AMINOTRANSFERASE 14 U/L (9-52); ALBUMIN 4.3 g/dL (3.5-5.0); ALKALINE PHOSPHATASE 70 U/L (38-126); ANION GAP 12 (5-19); ASPARTATE AMINO TRANSFERASE 18 U/L (14-36); BILIRUBIN,DIRECT 0.3 mg/dL (0.0-0.4); BILIRUBIN,TOTAL 0.4 mg/dL (0.2-1.3); BLOOD UREA NITROGEN 19 mg/dL (7-20); CALCIUM 9.4 mg/dL (8.4-10.2); CARBON DIOXIDE 25 mmol/L (22-30); CHLORIDE 107 mmol/L (98-107); GLUCOSE 125 mg/dL (75-110); LIPASE 198.1 U/L (23-300); POTASSIUM 4.1 mmol/L (3.6-5.0); SODIUM 143.5 mmol/L (137-145); TOTAL PROTEIN 8.8 g/dL (6.3-8.2)
--- NOTE | 2018-09-29 03:20 | RADIOLOGY REPORT (SQ) ---
EXAM DESCRIPTION: [facility]: CT ABDOMEN PELVIS WITH IV CONTRAST CLINICAL HISTORY: 52 years Female; eval rlq pain TECHNIQUE: CT of the abdomen and pelvis using intravenous contrast. All CT scans at this facility use dose modulation, iterative reconstruction, and/or weight based dosing when appropriate to reduce radiation dose to as low as reasonably achievable. COMPARISON: CT 07/31/2018 FINDINGS: Visualized lower lobes are unchanged, with multiple bulla as on prior exam. Abdomen: Liver:No focal lesions. No intrahepatic ductal distention. Gallbladder:Nondistended Pancreas:Within normal limits Spleen:Within normal limits Right kidney:No hydronephrosis. No focal lesion. Left kidney:No hydronephrosis. No focal lesion. Adrenal glands:Within normal limits Vascular structures:Within normal limits Pelvis: Small bowel:No significant distention. Appendix:Within normal limits Colon: There is moderate proximal colonic fecal retention. No acute pericolonic edema. No free intraperitoneal fluid or air. Bladder: Nondistended. No adjacent edema. Uterus: Within normal limits. No adnexal enlargement. No pelvic adenopathy. IMPRESSION: 1. No acute findings 2. Appendix is normal. 3. Colonic fecal retention, without small bowel distention. Possible colonic ileus. 4. Bullous changes are partially visualized in both lower lobes, similar to prior exam.
[2018-09-29] MEDS ORDERED: LACTULOSE SYRUP 20 GM/30 ML UDCUP PO ONE (03:30)
--- NOTE | 2018-09-29 03:33 | ER Document Report ---
ED General - General Chief Complaint: Abdominal Pain Stated Complaint: ABDOMINAL PAIN Time Seen by Provider: 09/28/18 20:50 Mode of Arrival: Ambulatory Notes: Patient is a 52-year-old female with past medical history of HIV, hypertension, presents with complaints of abdominal pain and nausea. Patient states that her pain started approximately 10 hours ago and has been waxing and waning since onset. Describes it as being a generalized, aching, throbbing discomfort. Nothing seems to make the pain worse. Nothing improves the pain. Denies any significant pain at the time of my evaluation but states that when it is present it can be quite severe. Denies any history of similar symptoms in the past. Has no prior history of abdominal surgeries. Has not seen her general physician regarding today's concerns. Denies fever or constitutional symptoms. TRAVEL OUTSIDE OF THE [place] IN LAST 30 DAYS: No - Related Data Allergies/Adverse Reactions: acetaminophen [From Percocet] Allergy (Verified 07/31/18 17:25) oxycodone [From Percocet] Allergy (Verified 07/31/18 17:25) Penicillins Allergy (Verified 07/31/18 17:25) control Allergy (Uncoded 07/31/18 17:25) sharma Allergy (Uncoded 07/31/18 17:25) Past Medical History - General Information source: Patient - Social History Smoking Status: Never Smoker Chew tobacco use (# tins/day): No Frequency of alcohol use: None Drug Abuse: None Lives with: Spouse/Significant other Family History: Reviewed & Not Pertinent Patient has suicidal ideation: No Patient has homicidal ideation: No - Past Medical History Cardiac Medical History: Reports: Hx Hypertension Renal/ Medical History: Denies: Hx Peritoneal Dialysis Infectious Medical History: Reports: Hx HIV Review of Systems - Review of Systems Notes: Constitutional: Negative for fever. HENT: Negative for sore throat. Eyes: Negative for visual changes. Cardiovascular: Negative for chest pain. Respiratory: Negative for shortness of breath. Gastrointestinal: Positive for abdominal pain and nausea Genitourinary: Negative for dysuria. Musculoskeletal: Negative for back pain. Skin: Negative for rash. Neurological: Negative for headaches, weakness or numbness. 10 point ROS negative except as marked above and in HPI. Physical Exam - Vital signs Vitals: Temp Pulse Resp BP Pulse Ox 98.4 F 86 16 131/85 H 93 09/28/18 20:25 09/28/18 20:25 09/28/18 20:25 09/28/18 20:25 09/28/18 20:25 Interpretation: Normal Notes: PHYSICAL EXAMINATION: GENERAL: Well-appearing, well-nourished and in no acute distress. HEAD: Atraumatic, normocephalic. EYES: Pupils equal round and reactive to light, extraocular movements intact, sclera anicteric, conjunctiva are normal. ENT: nares patent, oropharynx clear without exudates. Moist mucous membranes. NECK: Normal range of motion, supple without lymphadenopathy LUNGS: Breath sounds clear to auscultation bilaterally and equal. No wheezes rales or rhonchi. HEART: Regular rate and rhythm without murmurs ABDOMEN: Soft, mild focal tenderness to the right lower quadrant otherwise no localization of tenderness, normoactive bowel sounds. No guarding, no rebound. No masses appreciated. EXTREMITIES: Normal range of motion, no pitting or edema. No cyanosis. NEUROLOGICAL: No focal neurological deficits. Moves all extremities spontaneously and on command. PSYCH: Normal mood, normal affect. SKIN: Warm, Dry, normal turgor, no rashes or lesions noted. Course - Re-evaluation Re-evalutation: 09/29/18 03:31 Patient presents with generalized abdominal cramping with associated nausea. On abdominal exam she was initially most focally tender to the right lower quadrant. Because of this concern a CT scan of the abdomen pelvis was obtained to exclude acute appendicitis. This is normal noting a normal appendix but does show a heavy colonic stool burden. On repeat abdominal assessment the patient has no localization of tenderness and I do suspect that her pain may be related to the large quantity of stool in her colon. Labs otherwise unremarkable. Patient has been given lactulose here in the emergency department has been instructed to take MiraLAX at home. At this time will discharge with return precautions and follow-up recommendations. Verbal discharge instructions given a the bedside and opportunity for questions given. Medication warnings reviewed. Patient is in agreement with this plan and has verbalized understanding of return precautions and the need for primary care follow-up in the next 24-72 hours. - Vital Signs Vital signs: Temp Pulse Resp BP Pulse Ox 97.5 F 76 16 153/96 H 100 09/29/18 01:27 09/29/18 01:27 09/29/18 01:27 09/29/18 01:27 09/29/18 01:27 - Laboratory Result Diagrams: 09/29/18 00:50 09/29/18 00:50 Laboratory results interpreted by me: 09/29/18 09/29/18 09/29/18 00:41 00:50 00:50 WBC 2.3 L RBC 3.62 L Hgb 10.6 L Hct 32.1 L RDW 14.1 H Absolute Neutrophils 1.2 L Glucose 125 H Total Protein 8.8 H Urine Blood SMALL H - Diagnostic Test Radiology reviewed: Reports reviewed Discharge - Discharge Clinical Impression: Generalized abdominal pain, Nausea Constipation Qualifiers: Constipation type: unspecified constipation type Qualified Code(s): K59.00 - Constipation, unspecified Condition: Good Disposition: HOME, SELF-CARE Additional Instructions: You have been seen in the Emergency Department (ED) for abdominal pain. Your CT scan today does suggest constipation. Take a capful of MiraLAX in the morning and at night tomorrow. Thereafter I recommend a capful of MiraLAX daily to keep yourself regular. Please follow up with your doctor as soon as possible regarding today's emergent visit and the symptoms that are bothering you. Return to the ED if your abdominal pain worsens or fails to improve, you develop bloody vomiting, bloody diarrhea, you are unable to tolerate fluids due to vomiting, fever greater than 101, or other symptoms that concern you.
[2018-09-29 04:18] VITALS: BP 123/86
== END 2018-09-29 04:31 | disposition home or self-care (01) ==
LOC: ER 20:15
DX: K59.00 Constipation, unspecified (principal); R10.84 Generalized abdominal pain; R10.813 Right lower quadrant abdominal tenderness; R11.0 Nausea; I10 Essential (primary) hypertension; Z21 Asymptomatic human immunodeficiency virus [HIV] infection status; Z88.5 Allergy status to narcotic agent; Z88.0 Allergy status to penicillin; Z88.8 Allergy status to other drugs, medicaments and biological substances; Z91.018 Allergy to other foods
CPT/HCPCS: 99284; 96361; 96374; 96375; 36415; 83690; 85025; 80053; 81001; 74177; A9270; J1885; J2405; J7030